=== PATIENT | male | born 1945 | race Caucasian/White ===

== ENCOUNTER 2017-04-03 11:51 | Emergency (ER) | payer MEDICAID, OTHER ==
[~2017-04-03] VITALS: Ht 177.8 cm; Wt 63.5 kg
[~2017-04-03 11:51] MED LIST: ALPRAZOLAM0.25 MG ORAL; AMITRIPTYLINE H10 MG ORAL; AMITRIPTYLINE25 MG ORAL; ATIVAN0.5 MG ORAL; IBUPROFEN600 MG ORAL; METOPROLOL SUCC25 MG ORAL; NKM; NORCO 5-325 TA1 EACH ORAL; THIAMINE HCL100 MG ORAL
[2017-04-03 12:03] VITALS: BP 144/90
[2017-04-03] MEDS ORDERED: Ketorolac 30mg Inj IV ONE (12:45)
[2017-04-03] MEDS ORDERED: Diazepam 10mg/2ml Inj IV ONE (13:00)
[2017-04-03 13:26] LABS: BASOPHILS % (AUTO) 0.3 % (0.0-2.0); EOSINOPHILS % (AUTO) 0.9 % (0.0-3.0); LYMPHOCYTES % (AUTO) 23.8 % (20.0-45.0); MEAN CORPUSCULAR HEMOGLOBIN 30.2 PG (27.0-31.0); MEAN CORPUSCULAR HGB CONC 34.5 G/DL (32.0-36.0); MEAN CORPUSCULAR VOLUME 87 FL (80-99); MEAN PLATELET VOLUME 6.5 FL (6.5-10.1); PLATELET COUNT 194 K/UL (150-450); RED BLOOD COUNT 4.19 M/UL (4.70-6.10); RED CELL DISTRIBUTION WIDTH 11.4 % (11.6-14.8); WHITE BLOOD COUNT 5.7 K/UL (4.8-10.8)
[2017-04-03 13:59] LABS: ALANINE AMINOTRANSFERASE 8 U/L (3-41); ALBUMIN/GLOBULIN RATIO 1.4 (1.0-2.7); ANION GAP 14 (5-15); ASPARTATE AMINO TRANSFERASE 15 U/L (5-40); CALCIUM 8.8 mg/dL (8.6-10.2); CARBON DIOXIDE 25 mEQ/L (20-30); CHLORIDE 96 mEQ/L (98-107); CREATININE 0.8 mg/dL (0.7-1.2); GLOMERULAR FILTRATION RATE > 60 mL/min (>60); HEMOLYSIS 2; LIPASE 23 U/L (< 60); POTASSIUM 2.8 mEQ/L (3.4-4.9); SODIUM 135 mEQ/L (135-145); TOTAL PROTEIN 6.2 g/dL (6.6-8.7)
[2017-04-03] MEDS ORDERED: VALIUM5 MG ORAL (14:42)
[2017-04-03] MEDS ORDERED: NORCO 5-325 TA1 EACH ORAL (14:42)
--- NOTE | 2017-04-03 15:27 | Emergency Room Report ---
History of Present Illness General Chief Complaint: Back Pain-No Injury Source: Patient, EMS Present Illness HPI Patient has a history of ligamentous disease. Patient presents emergency department today complaining lower back pain. Patient has had back pain before. States that the pain is worse with movement. He states that he is taking Valium and passive good improvement in symptoms. Denies any fever nausea vomiting diarrhea chills. Symptoms noted to be moderate to severe. No other modifying factors. No other associated signs and symptoms. No other complaints were noted. Allergies: Coded Allergies: No Known Allergies (Unverified , 03/30/14) Patient History Past Medical History: other - Depression, osteoporosis, chronic back pain Past Surgical History: none Pertinent Family History: none Social History: Denies: alcohol use, drug use, smoking Reviewed Nursing Documentation: PMH: Agreed, PSxH: Agreed Nursing Documentation-PMH Past Medical History: No History, Except For Hx Cardiac Problems: No Hx Hypertension: No Hx COPD: No Hx Cancer: No Hx Gastrointestinal Problems: No Hx Dialysis: No - Renal insufficiency History Of Psychiatric Problem: Yes - DEPRESSION Hx Neurological Problems: Yes - Osteoporosis, Chronic back pain Review of Systems All Other Systems: negative except mentioned in HPI Physical Exam Vital Signs Date Time Temp Pulse Resp B/P Pulse Ox O2 Delivery O2 Flow Rate FiO2 04/03/17 11:43 97.5 80 20 144/90 99 Room Air Sp02 EP Interpretation: reviewed, normal General Appearance: normal inspection, well appearing, no apparent distress, alert Head: atraumatic Eyes: bilateral eye normal inspection ENT: normal ENT inspection, hearing grossly normal, normal voice Neck: normal inspection, full range of motion, supple, no bony tend Respiratory: normal inspection, lungs clear, normal breath sounds, no respiratory distress, no retraction, no wheezing Cardiovascular #1: regular rate, rhythm, no edema Gastrointestinal: normal inspection, normal bowel sounds, non tender, soft, no guarding, no hernia Genitourinary: no CVA tenderness Musculoskeletal: normal inspection, normal range of motion, other - bilateral lower back Neurologic: normal inspection, alert, responsive, speech normal Psychiatric: normal inspection, judgement/insight normal, mood/affect normal Skin: normal inspection, normal color, no rash Medical Decision Making Diagnostic Impression: Primary Impression: Back pain Qualified Codes: M54.42 - Lumbago with sciatica, left side; M54.41 - Lumbago with sciatica, right side ER Course Patient presents emergency department today complaining lower back pain. Differential considerations include fracture dislocation versus sprain. Given patient's presentation for the x-rays are indicated. X-ray shows significant osteoporosis with evidence of multiple compression fractures. These do not appear acute. However given patient's presentation I felt the patient require pain medications. Patient was given Valium and Toradol with significant improvement. Patient requested to be discharged. Patient was given a prescription for pain medications. Patient laboratory workup was also normal.Patient is advised to follow up with primary doctor in 2-3 days and return the emergency room for any worsening symptoms and as needed. Labs Test 04/03/17 13:01 White Blood Count 5.7 K/UL (4.8-10.8) Red Blood Count 4.19 M/UL (4.70-6.10) Hemoglobin 12.6 G/DL (14.2-18.0) Hematocrit 36.6 % (42.0-52.0) Mean Corpuscular Volume 87 FL (80-99) Mean Corpuscular Hemoglobin 30.2 PG (27.0-31.0) Mean Corpuscular Hemoglobin Concent 34.5 G/DL (32.0-36.0) Red Cell Distribution Width 11.4 % (11.6-14.8) Platelet Count 194 K/UL (150-450) Mean Platelet Volume 6.5 FL (6.5-10.1) Neutrophils (%) (Auto) 72.0 % (45.0-75.0) Lymphocytes (%) (Auto) 23.8 % (20.0-45.0) Monocytes (%) (Auto) 3.0 % (1.0-10.0) Eosinophils (%) (Auto) 0.9 % (0.0-3.0) Basophils (%) (Auto) 0.3 % (0.0-2.0) Sodium Level 135 mEQ/L (135-145) Potassium Level 2.8 mEQ/L (3.4-4.9) Chloride Level 96 mEQ/L (98-107) Carbon Dioxide Level 25 mEQ/L (20-30) Anion Gap 14 (5-15) Blood Urea Nitrogen 9 mg/dL (7-23) Creatinine 0.8 mg/dL (0.7-1.2) Estimat Glomerular Filtration Rate > 60 mL/min (>60) Glucose Level 106 mg/dL (74-106) Calcium Level 8.8 mg/dL (8.6-10.2) Total Bilirubin 0.8 mg/dL (0.0-1.2) Aspartate Amino Transf (AST/SGOT) 15 U/L (5-40) Alanine Aminotransferase (ALT/SGPT) 8 U/L (3-41) Alkaline Phosphatase 117 U/L (40-129) Total Protein 6.2 g/dL (6.6-8.7) Albumin 3.7 g/dL (3.5-5.2) Globulin 2.5 g/dL Albumin/Globulin Ratio 1.4 (1.0-2.7) Lipase 23 U/L (< 60) Other X-Ray Diagnostic Results Other X-Ray Diagnostic Results : X-Ray ordered: lumbar x-ray Indication: Pain EP Interpretation: Yes Interpretation: no dislocation, no soft tissue swelling, other - multiple compression fractures of the vertebral bodies. Interpreting ER Provider: Electronically signed by Erwin Jovel MD Last Vital Signs Date Time Temp Pulse Resp B/P Pulse Ox O2 Delivery O2 Flow Rate FiO2 04/03/17 13:50 97.5 04/03/17 12:03 80 20 144/90 99 Room Air Status: improved Disposition: HOME, SELF-CARE Condition: Stable Scripts Diazepam* (VALIUM*) 5 Mg Tablet 5 MG ORAL TID Y for For Pain, #30 TAB 0 Refills Prov: ERWIN JOVEL M.D. 04/03/17 Hydrocodone Bit/Acetaminophen 5-325* (NORCO 5-325*) 1 Each Tablet 1 TAB ORAL Q6H Y for For Pain, #20 TAB 0 Refills Prov: ERWIN JOVEL M.D. 04/03/17 Referrals: NOT CHOSEN LEVI/,REFERRING (PCP) Patient Instructions: Back Pain, Adult ERWIN JOVEL M.D. Apr 03, 2017 15:27
[2017-04-03 15:58] VITALS: BP 146/91
--- NOTE | 2017-04-03 15:58 | Diagnostic Imaging Report ---
Indication: PAIN Technique: 3 views of the lumbar spine Comparison: 05/21/2015 lumbar MRI Findings:There is a vertebral plana type burst/compression fracture deformity of the T12 vertebral body. This appears more flattened than on the prior MRI. Anterior wedging and superior endplate compression fracture deformities of L1 and L2 appear similar to the prior MRI. There is vertebral plana burst/compression fracture deformity of the L3 vertebral body, which appears progressive since the prior study. Vertebral plana compression fracture deformity of L4 appears similar to the previous exam. The L5 vertebral body height is preserved. Mild flattening of T11 appears similar to the previous exam. The bones appear osteoporotic. There is mild scoliotic deformity of the thoracolumbar junction. Sacral arches are preserved. There is mild sacroiliac degeneration. The surrounding soft tissues are unremarkable. Impression:Compression fracture deformities of every lumbar vertebral body, except for L5, as well as visualized lower thoracic segments. The T12 and L3 fractures appear progressive since prior MRI of 05/21/2015,, but otherwise are age indeterminate. The other compression fractures are similar to the previous exam and are therefore chronic. This agrees with the preliminary interpretation provided by the emergency room physician
== END 2017-04-03 15:59 | disposition home or self-care (01) ==
LOC: EDBD 11:51 → EMR 12:39
DX: M54.5 Low back pain (principal); M48.56XA Collapsed vertebra, not elsewhere classified, lumbar region, initial encounter for fracture; F32.9 Major depressive disorder, single episode, unspecified; G89.29 Other chronic pain; M81.0 Age-related osteoporosis without current pathological fracture
CPT/HCPCS: 36415; 72020; 80053; 83690; 85025; 96374; 96375; 99284; J1885; J3360

== ENCOUNTER 2017-04-22 13:33 | Emergency (ER) | payer OTHER ==
[~2017-04-22] VITALS: Ht 172.7 cm; Wt 66.7 kg
[~2017-04-22 13:33] MED LIST changes: +VALIUM5 MG ORAL
--- NOTE | 2017-04-22 14:09 | Emergency Room Report ---
History of Present Illness General Chief Complaint: Lower Back Pain or Injury Present Illness HPI 71 YO male presents to ED for medication refill of valium. Patient has a history of chronic low back pain and is usually seen at the [place]. Patient states that he has appointment for chronic pain management. he denies recent trauma or fall. denies recent spinal procedures, fevers or chills. Pt. denies changes in character of his chronic symptoms. Pt. states he just requires medication refill until he can be seen by his [place] pain management doctor to sign a pain management contract. pt. states he was all out of options other than to come to the ED for refill. Denies numbness tingling or loss of sensation or gross motor movements of the extremities, incontinence of bowel or bladder. Denies CP, Palpitations, LOC, AMS , dizziness, Changes in Vision, Sensation, paresthesias, or a sudden severe headache. Allergies: Coded Allergies: No Known Allergies (Unverified , 03/30/14) Nursing Documentation-PMH Hx Cardiac Problems: No Hx Hypertension: No Hx COPD: No Hx Cancer: No Hx Gastrointestinal Problems: No Hx Dialysis: No - Renal insufficiency Hx Neurological Problems: Yes - Osteoporosis, Chronic back pain Physical Exam Vital Signs Date Time Temp Pulse Resp B/P Pulse Ox O2 Delivery O2 Flow Rate FiO2 04/22/17 13:27 98.6 100 17 130/86 98 Room Air Medical Decision Making PA Attestation Dr. Middleton is my supervising Physician whom patient management has been discussed with. Diagnostic Impression: Primary Impression: Encounter for medication refill Additional Impressions: History of compression fracture of vertebral column Lumbago with sciatica, left side Qualified Codes: M54.42 - Lumbago with sciatica, left side; G89.29 - Other chronic pain ER Course Patient presents to the emergency department complaining of exacerbation of his chronic low back pain due to running out of his medications, and [facility] to refer him to pain medicine physician. Ddx considered: epidural abscess, fracture, sprain/strain, meningitis, spinal chord injury. Vital signs reviewed and are [ ] durring ED visit. Pt. is afebrile with no signs of infection No new symptoms, or changes to his chronic symptoms. Denies recent trauma. No saddle anesthesia noted, Pt. denies incontinence Neurovascular is intact ROM is limited due to pain * Mild Tenderness to palpation to paraspinal muscles of the lower back, no spinous process tenderness, no midline tenderness. *Pt. describes pain today as moderate to severe with movements and radiates across the lower back and down the left posterior leg. ORDERS: none warranted at this time. -reviewed pt. chart from previous visit, and imaging which showed chronic compression fractures. INTERVENTIONS: D/W Pt. that for further pain management is it recommended to consult PCP or a Chronic Pain management doctor. A provider who can safely prescribe controlled substances with close follow up. DISCHARGE: At this time pt. is stable for d/c to home. Will provide printed patient care instructions, and any necessary prescriptions. Care plan and follow up instructions have been discussed with the patient prior to discharge. Last Vital Signs Date Time Temp Pulse Resp B/P Pulse Ox O2 Delivery O2 Flow Rate FiO2 04/22/17 13:27 98.6 100 17 130/86 98 Room Air Disposition: HOME, SELF-CARE Condition: Stable Scripts Diazepam* (VALIUM*) 5 Mg Tablet 5 MG ORAL BID Y for For Pain, #20 TAB 0 Refills Prov: Kaitlin Esquivel 04/22/17 Patient Instructions: Medicine Refill at the Emergency Department Additional Instructions: Take medications as directed. FOLLOW UP WITH CHRONIC PAIN MANAGEMENT PHYSICIAN Follow up with a Primary Care Provider in 3-5 days, even if your symptoms have resolved. --Please review list of primary care clinics, if you do not already have a primary care provider Return sooner to ED if new symptoms occur, or current symptoms become worse. Do not drink alcohol, drive, or operate heavy machinery while taking Valium as this may cause drowsiness. - Please note that this Emergency Department Report was dictated using [employer] volunteer coordinator technology software, occasionally this can lead to erroneous entry secondary to interpretation by the dictation equipment. Kaitlin Esquivel Apr 22, 2017 14:09
[2017-04-22] MEDS ORDERED: VALIUM5 MG ORAL (14:10)
[2017-04-22 14:43] VITALS: BP 150/80
== END 2017-04-22 18:13 | disposition home or self-care (01) ==
LOC: EDBD 13:33 → EMR 14:48
DX: G89.29 Other chronic pain (principal); Z76.0 Encounter for issue of repeat prescription; M54.42 Lumbago with sciatica, left side; M81.0 Age-related osteoporosis without current pathological fracture
CPT/HCPCS: 99283